=== PATIENT | female | born 1965 | race Caucasian/White ===

== ENCOUNTER 2024-08-14 06:19 | Day surgery (SDC) | payer BC, SELFPAY ==
[2024-08-08 10:49] VITALS: BMI 23.8
[2024-08-14] MEDS: LACTATED RINGERS 1000ML 1,000 ML 50 ML IV (06:50)
[2024-08-14 06:57] VITALS: BP 112/62; PULSE 71; RESP 18; TEMP 36.3; O2SAT 99
--- NOTE | 2024-08-14 07:22 | P.PNANES_ITS ---
[facility] Disclaimer: The information contained in this section may have been updated after the patient was seen, as this information can be updated by other users. Medical History Hyperlipidemia Surgical History H/O melanoma excision History of hysterectomy Family History Father Bone cancer Sister Breast cancer Mother Diabetes Mother Heart disease Social History Smoking Status: Never smoker alcohol intake: never substance use type: denies use current occupational status: other Travel in the last 8 weeks: None [facility] Anesthesia Checklist Patient Identification Patient Identification: Arm Band and Verbal (Name & ) Structural Data Admitted From: Home Planned Operative Procedure/s: colonscopy Consent for Planned Operative Procedure(s) Verified: Yes Verified Documents: Surgical Consent and History and Physical NPO Status Verified Time NPO: 00:00 Additional verifications Patient : No Anesthesia Reactions: No Airway Assessment Mallampati Score:: Class II Neurological Assessment Level of Consciousness: Awake, Alert and Appropriate Hx Seizures: No Anesthesia Plan Anesthesia Risk discussed: Yes Anesthesia Plan: Verified ASA Class: II Anesthesia Type: MAC
--- NOTE | 2024-08-14 07:54 | P.HP_ITS ---
History of Present Illness *Admission Date: 08/14/24 *Reason for visit:: Personal history of adenomatous colon polyps *History of present illness: Mrs. Santiago is a 58-year-old female who is here for surveillance colonoscopy secondary to personal history of adenomatous colon polyps. The examination is deemed medically necessary for surveillance colonoscopy. The patient has been seen, interviewed and examined prior to the procedure by both myself and the anesthesia provider. [facility] Disclaimer: The information contained in this section may have been updated after the patient was seen, as this information can be updated by other users. Medical History Hyperlipidemia Surgical History H/O melanoma excision History of hysterectomy Family History Father Bone cancer Sister Breast cancer Mother Diabetes Mother Heart disease Social History (Updated 08/14/24 @ 07:23 by Della Cochran CRNA) Smoking Status: Never smoker alcohol intake: never substance use type: denies use current occupational status: other Travel in the last 8 weeks: None Have you lived/traveled outside [place] in past 30 days?: No Contact w/someone who lives/traveled outside US past 30 days?: No Exposure to someone with infectious disease in past 14 days?: No Do you have a fever (greater than 100.4 F or 38 C)?: No Have you tested positive for COVID-19: No Exposed to someone with COVID-19 in past 14 days?: No Do you have a sore throat?: No Do you have a cough?: No Do you have any weakness?: No Do you have any diarrhea?: No Are you experiencing any unusual bleeding?: No Do you have any muscle aches/pain?: No Do you have any abdominal pain?: No Are you experiencing loss of taste or smell?: No Review of Systems Review of Systems Review of systems (narrative): Negative *Cardiovascular Comments: Negative *Gastrointestinal Comments: Negative *Genitourinary Comments: Negative *Musculoskeletal Comments: Negative *Neurologic Comments: Negative Meds Home Medications and Allergies Home Medications ?Medication ?Instructions ?Recorded ?Confirmed ?Type estradiol 0.05 mg/24 hr weekly 1 patch transdermal WEEKLY 08/14/24 08/14/24 History transdermal patch rosuvastatin 5 mg tablet 5 mg PO DAILY 08/14/24 08/14/24 History New Prescriptions to Start Prescriptions: Allergies Allergy/AdvReac Type Severity Reaction Status Date / Time No Known Allergies Allergy Verified 08/14/24 06:55 Exam Data for Last 24 hours Vital signs and Labs for Last 24 Hours: Temp Pulse Resp BP Pulse Ox O2 Del Method 97.4 F L 71 18 112/62 99 Room Air 08/14/24 06:57 08/14/24 06:57 08/14/24 06:57 08/14/24 06:57 08/14/24 06:57 08/14/24 06:57 *Routine HEENT Exam Head: Present normocephalic Eye: Present EOMI and PERRL ENT: Present mucous membranes moist *Routine Neck Exam Neck: Present supple *Routine Respiratory Exam Respiratory: Present CTA bilaterally *Routine Cardiovascular Exam Cardiovascular: Present RRR *Routine Abdominal Exam Abdominal: Present soft and normoactive bowel sounds; Absent tenderness *Routine Rectal Exam Rectal:: deferred *Routine Genitalia Exam Genitalia:: deferred *Routine Extremities Exam Extremities: Absent cyanosis, clubbing or edema *Routine Skin Exam Skin: Present warm; Absent rash *Routine Neurological Exam Neurological: Present alert and oriented X3 Assessment and Plan *Assessment and plan (1) Personal history of adenomatous and serrated colon polyps: Status: Acute Category: Medical Code(s): Z86.0101 - Personal history of adenomatous and serrated colon polyps (2) Family history of colon cancer: Status: Acute Category: Medical Code(s): Z80.0 - Family history of malignant neoplasm of digestive organs Plan A/P: 1. Personal history of adenomatous colon polyps and family history is the preprocedural diagnosis. The patient will be anesthetized/sedated using MAC sedation. The patient has been seen and examined. Cardiac and lung assessment prior to the examination is stable. Proceed with planned surveillance colonoscopy
[2024-08-14 08:01] VITALS: O2SAT 100
--- NOTE | 2024-08-14 08:04 | P.PCN_ITS ---
[facility] Procedure Note Date: 08/14/24 Time: 08:22 Procedure Note:: Colonoscopy Procedure Report: Colonoscopy with cold snare polypectomy Endoscopist: Chadwick Rossi II, MD Referring physician: Ángel Lopez MD [address] [place] [id number] Date of Procedure: August 14, 2024 Equipment: Olympus 190 variable stiffness pediatric colonoscope Sedation: MAC sedation Indication: Mrs. Santiago is a 58-year-old female who is here for follow-up surveillance colonoscopy. The patient did have a colonoscopy at age 50 and had 4 polyps 1 of which was an advanced adenomatous colon polyp. Her last colonoscopy just over 5 years ago was normal. She does state that her paternal uncle and maternal aunt had colon cancer and her father had polyps. She reports no abdominal pain, weight loss, change in her bowel habits or rectal bleeding. She does take a fiber bowel regimen (combined MiraLAX plus psyllium) daily which helps to regulate her bowel function. Procedure: Prior to the procedure, a history and physical exam was performed, and patient's medications and allergies were reviewed. The risks, benefits and alternatives of the sedation and procedure were discussed with the patient. All questions were answered and informed consent was obtained. The patient was brought to the procedure room. Patient identification and proposed procedure were verified by the physician and the nurse. The patient was placed in a left lateral decubitus position and the scope was passed under direct vision. Throughout the procedure, the patient's blood pressure, pulse, and oxygen saturations were monitored continuously. The colonoscopy was accomplished without difficulty. The patient tolerated the procedure well. Findings: On digital rectal examination there was normal rectal tone. There were no external hemorrhoids. The colonoscope was introduced through the anal canal to the rectum and advanced to the cecum. The ileocecal valve and appendiceal orifice were identified. The scope was advanced a short distance into the ileum which appeared grossly normal. The scope was then withdrawn into the colon. The cecum, ascending, transverse and descending colon were grossly normal. There was a single 5 mm polyp in the sigmoid colon removed via cold snare polypectomy. The rectum itself was normal. There were no other mucosal abnormalities identified. Upon retroflexion within the rectum there were grade 1-2 internal hemorrhoids. The preparation was excellent throughout with [place] Preparation Score of 9. The cecal time was 12 minutes. Impression: 1. Sigmoid colon polyp (5 mm) 2. Grade 1-2 internal hemorrhoids Plan: I will follow-up the polyp histology and recommend repeat surveillance colonoscopy again in 5 years.
[2024-08-14 08:26] VITALS: BP 117/74; PULSE 91; RESP 18; TEMP 36.1; O2SAT 97
[2024-08-14 08:36] VITALS: BP 102/80; PULSE 88; RESP 17; O2SAT 97
[2024-08-14 08:46] VITALS: BP 121/78; PULSE 78; RESP 16; O2SAT 99
== END 2024-08-14 08:58 | disposition home or self-care (01) ==
PROVIDERS: PCP Family Medicine; Visit Provider Internal Medicine Gastroenterology
PROC: 0DJD8ZZ Inspection of Lower Intestinal Tract, Via Natural or Artificial Opening Endoscopic (ICD-10-PCS; CPT 45378; principal; 2024-08-14 08:00)
DX: K63.5 Polyp of colon (principal); K64.8 Other hemorrhoids; Z86.0101 Personal history of adenomatous and serrated colon polyps; Z80.0 Family history of malignant neoplasm of digestive organs
CPT/HCPCS: 45385; J7120